=== PATIENT | male | born 1955 | race Caucasian/White ===

== ENCOUNTER 2019-07-09 11:46 | Outpatient (CLI) | payer OTHER ==
[~2019-07-09 11:46] MED LIST: ACET650S21 PO; ASCO10004 PO; ASPI-650 PO; EZET10TA70 PO; HYDR200T72 PO; METH2.5T PO; MULT-516 PO; OMEP20TA62 PO; RIVA20TA PO; ROSU40TA PO; SPIR25TA5 PO
== END 2019-07-09 23:59 | disposition home or self-care (01) ==
LOC: CARD 11:46
PROVIDERS: ATTEND Thoracic Surgery (Cardiothoracic Vascular Surgery)
DX: C34.10 Malignant neoplasm of upper lobe, unspecified bronchus or lung (principal); J43.9 Emphysema, unspecified
CPT/HCPCS: 94060; 94726; 94729

== ENCOUNTER 2019-07-10 09:40 | Inpatient (IN) | payer OTHER ==
[~2019-07-10] VITALS: Ht 177.8 cm; Wt 96.0 kg
[~2019-07-10 09:40] MED LIST changes: +BUPIVACAINE/PF-EPI 0.5% 1:200K ONE
[2019-07-10 10:32] VITALS: BP 143/80
[2019-07-10] MEDS ORDERED: LACTATED RINGERS 1,000 ML IV SCH (10:35)
[2019-07-10] MEDS ORDERED: MIDAZOLAM 1 MG/ML, 2ML ONE (10:57)
[2019-07-10] MEDS ORDERED: PROPOFOL 10 MG/ML, 20ML ONE (10:58)
[2019-07-10] MEDS ORDERED: SUCCINYLCHOLINE 20 MG/ML, 10ML ONE (10:58)
[2019-07-10] MEDS ORDERED: FENTANYL PF 250 MCG/5ML ONE (10:58)
[2019-07-10] MEDS ORDERED: NEOSTIGMINE 1 MG/ML, 10ML ONE (10:58)
[2019-07-10] MEDS ORDERED: ROCURONIUM 10MG/ML,5ML ONE (10:58)
[2019-07-10] MEDS ORDERED: GLYCOPYRROLATE 0.2MG/1ML, 5ML ONE (10:58)
[2019-07-10] MEDS ORDERED: CEFAZOLIN 1,000 MG ONE (10:58)
[2019-07-10] MEDS ORDERED: DEXAMETHASONE 4 MG/ML, 1ML ONE (10:58)
[2019-07-10] MEDS ORDERED: ONDANSETRON 2MG/ML, 2ML ONE (10:58)
[2019-07-10] MEDS ORDERED: ONDANSETRON 2MG/ML, 2ML IV PRN (11:00)
[2019-07-10] MEDS ORDERED: ACETAMINOPHEN 500 MG TABLET PO ONE (11:00)
[2019-07-10] MEDS ORDERED: MEPERIDINE/PF 25MG/ML,1ML IVPush PRN (11:00)
[2019-07-10] MEDS ORDERED: GABAPENTIN 300 MG CAPSULE PO ONE (11:00)
[2019-07-10] MEDS ORDERED: OXYcodone 5 MG/5 ML ORAL.SOL UDC PO PRN (11:00)
[2019-07-10] MEDS ORDERED: FENTANYL PF 100 MCG/2ML IV PRN (11:00)
[2019-07-10] MEDS ORDERED: EPHEDRINE 50 MG/ML, 1ML IVPush PRN (11:00)
[2019-07-10] MEDS ORDERED: LABETALOL 5MG/ML, 20ML IV PRN (11:00)
[2019-07-10] MEDS ORDERED: HYDROmorphone 1 MG/ML, 1ML INJ IVPush PRN (11:00)
[2019-07-10] MEDS ORDERED: hydrALAzine 20 MG/ML, 1ML IV PRN (11:00)
[2019-07-10] MEDS ORDERED: PROMETHAZINE 25 MG/ML, 1ML IV PRN (11:00)
[2019-07-10] MEDS ORDERED: ALBUTEROL HFA 90 MCG/SPRAY ONE (11:05)
[2019-07-10] MEDS ORDERED: KETOROLAC 30 MG/1 ML ONE (12:20)
[2019-07-10] MEDS ORDERED: SODIUM CHLORIDE 0.9% PF 10ML ONE (12:41)
[2019-07-10] MEDS ORDERED: LIDOCAINE-MPF 2% ,5ML ONE (12:41)
[2019-07-10] MEDS ORDERED: SUGAMMADEX 200 MG/2 ML IVPush ONE (13:05)
[2019-07-10] MEDS: LACTATED RINGERS 1,000 ML IV SCH ×2 (13:24→21:55)
[2019-07-10] MEDS ORDERED: LORazepam 2 MG/ML, 1ML IVPush PRN (13:30)
[2019-07-10] MEDS ORDERED: morphine SULFATE 10 MG/ML, 1ML IVPush PRN (13:30)
[2019-07-10] MEDS ORDERED: hydrALAzine 20 MG/ML, 1ML IVPush PRN (13:30)
[2019-07-10] MEDS ORDERED: ENALAPRILAT 1.25 MG/ML, 2ML IVPush PRN (13:30)
[2019-07-10] MEDS ORDERED: FAMOTIDINE 20 MG TABLET PO PRN (13:30)
[2019-07-10] MEDS ORDERED: LORazepam 1MG TABLET PO PRN (13:30)
[2019-07-10] MEDS ORDERED: ONDANSETRON 2MG/ML, 2ML IVPush PRN (13:30)
[2019-07-10] MEDS ORDERED: ACETAMINOPHEN 325 MG TABLET PO PRN (13:30)
[2019-07-10] MEDS ORDERED: FENTANYL PF 100 MCG/2ML ONE (14:33)
[2019-07-10] MEDS ORDERED: OXYcodone 5 MG/5 ML ORAL.SOL UDC ONE (14:33)
[2019-07-10] MEDS: FAMOTIDINE 20 MG/2 ML IVPush SCH (17:11)
[2019-07-10] MEDS: ATORVASTATIN 80 MG TABLET PO SCH (20:41)
[2019-07-10 21:15] VITALS: BP 121/73
[2019-07-10] MEDS: HYDROcodone/APAP 5/325 TABLET PO PRN (21:52)
[2019-07-11] MEDS: HYDROcodone/APAP 5/325 TABLET PO PRN ×4 (01:35→18:07)
[2019-07-11] MEDS: FAMOTIDINE 20 MG/2 ML IVPush SCH ×2 (01:35→08:48)
[2019-07-11 01:40] VITALS: BP 121/66
[2019-07-11 04:51] LABS: BASOPHILS # (AUTO) 0.01 x10^3/uL (0-0.1); BASOPHILS % (AUTO) 0 % (0-1); EOSINOPHILS % (AUTO) 0 % (1-7); LYMPHOCYTES % (AUTO) 8 % (22-44); MD NO; MEAN CORPUSCULAR VOLUME 100.1 fL (81-97); MEAN PLATELET VOLUME 7.2 fL (7.4-10.4); MONOCYTES # (AUTO) 0.52 x10^3/uL (0.2-0.8); MONOCYTES % (AUTO) 6 % (2-9); NEUTROPHILS # (AUTO) 8.23 x10^3/uL (1.8-6.8); NEUTROPHILS % (AUTO) 86 % (42-75); PLATELET COUNT 301 x10^3/uL (130-400); RED CELL DISTRIBUTION WIDTH 13.9 % (9.4-14.8)
[2019-07-11 04:54] LABS: ANION GAP 7 mmol/L (5-15); CALCIUM 8.1 mg/dL (8.5-10.1); CHLORIDE 107 mmol/L (98-107); CREATININE 0.99 mg/dL (0.7-1.3)
[2019-07-11 07:16] VITALS: BP 110/68
[2019-07-11] MEDS: ENOXAPARIN 30 MG/0.3 ML SQ SCH ×2 (08:47→21:14)
[2019-07-11] MEDS: EZETIMIBE 10 MG TABLET PO SCH (08:47)
[2019-07-11] MEDS ORDERED: HYDR-3237 PO (10:33)
[2019-07-11 12:51] VITALS: BP 118/66
[2019-07-11 18:55] VITALS: BP 125/63
[2019-07-11] MEDS: ATORVASTATIN 80 MG TABLET PO SCH (21:14)
[2019-07-12 01:09] VITALS: BP 146/80
[2019-07-12] MEDS: HYDROcodone/APAP 5/325 TABLET PO PRN ×3 (03:40→14:01)
[2019-07-12 06:59] VITALS: BP 128/74
[2019-07-12] MEDS: EZETIMIBE 10 MG TABLET PO SCH (09:19)
[2019-07-12] MEDS: ENOXAPARIN 30 MG/0.3 ML SQ SCH (09:19)
[2019-07-12 13:43] VITALS: BP 117/66
== END 2019-07-12 17:15 | disposition home or self-care (01) | DRG 165 ==
LOC: ORIP 09:40 → 3WST 15:45 → 4NE 18:50
PROVIDERS: ADMIT Thoracic Surgery (Cardiothoracic Vascular Surgery); ATTEND Thoracic Surgery (Cardiothoracic Vascular Surgery)
PROC: 02NN0ZZ Release Pericardium, Open Approach (ICD-10-PCS; 2019-07-10)
PROC: 0BTG4ZZ Resection of Left Upper Lung Lobe, Percutaneous Endoscopic Approach (ICD-10-PCS; principal; 2019-07-10 12:30)
DX: C34.12 Malignant neoplasm of upper lobe, left bronchus or lung (principal); D71 Functional disorders of polymorphonuclear neutrophils; Z86.711 Personal history of pulmonary embolism
CPT/HCPCS: 36415; J3490; 71045; 80048; 85025; 86850; 86900; 86923; 88305; 88309; 88312; C1729; G0378; J0690; J1100; J1650; J1885; J2250; J2405; J2704; J2710; J3010; J0330; J2270; J7120

== ENCOUNTER 2019-12-11 06:35 | Observation (INO) | payer OTHER ==
[~2019-12-11] VITALS: Ht 179.1 cm; Wt 100.0 kg
[~2019-12-11 06:35] MED LIST changes: -BUPIVACAINE/PF-EPI 0.5% 1:200K ONE; +EPINEPHRINE 1 MG/ML, 1ML ONE; +HYDR-3237 PO; +KETOROLAC 60 MG/2 ML ONE; +ROPIvacaine/PF 0.5%, 20 ML ONE; +ROPIvacaine/PF 0.5%, 30 ML ONE; +SODIUM CHLORIDE 0.9% 50 ML ONE; +TRANEXAMIC ACID 100 MG/ML, 10ML ONE; +VANCOMYCIN 1,000 MG ONE
[2019-12-11] MEDS ORDERED: HYDR200T72 PO (07:27)
[2019-12-11] MEDS ORDERED: METH2.5T PO (07:27)
[2019-12-11] MEDS ORDERED: OMEP-110 PO (07:29)
[2019-12-11] MEDS ORDERED: NABU750T PO (07:29)
[2019-12-11] MEDS ORDERED: PROMETHAZINE 25 MG/ML, 1ML IVPush PRN (07:30)
[2019-12-11] MEDS ORDERED: OXYcodone 5 MG/5 ML ORAL.SOL UDC PO PRN (07:30)
[2019-12-11] MEDS ORDERED: EPHEDRINE 50 MG/ML, 1ML IVPush PRN (07:30)
[2019-12-11] MEDS ORDERED: HYDROmorphone 1 MG/ML, 1ML INJ IVPush PRN (07:30)
[2019-12-11] MEDS ORDERED: ACETAMINOPHEN 325 MG TABLET PO PRN (07:30)
[2019-12-11] MEDS ORDERED: MEPERIDINE/PF 25MG/0.5ML IVPush PRN (07:30)
[2019-12-11] MEDS ORDERED: LABETALOL 5MG/ML, 20ML IV PRN (07:30)
[2019-12-11] MEDS ORDERED: hydrALAzine 20 MG/ML, 1ML IV PRN (07:30)
[2019-12-11] MEDS ORDERED: FENTANYL PF 100 MCG/2ML IV PRN (07:30)
[2019-12-11] MEDS ORDERED: ONDANSETRON 2MG/ML, 2ML IVPush PRN (07:30)
[2019-12-11] MEDS ORDERED: LACTATED RINGERS 1,000 ML IV SCH (07:34)
[2019-12-11 07:38] VITALS: BP 138/79
[2019-12-11] MEDS ORDERED: CHLORHEXIDINE 15 ML UDC ONE (07:44)
[2019-12-11] MEDS ORDERED: ACETAMINOPHEN 500 MG TABLET ONE (07:45)
[2019-12-11] MEDS ORDERED: GABAPENTIN 300 MG CAPSULE ONE (07:45)
[2019-12-11] MEDS ORDERED: FENTANYL PF 250 MCG/5ML ONE (07:47)
[2019-12-11] MEDS ORDERED: SODIUM CHLORIDE 0.9% PF 10ML ONE (07:47)
[2019-12-11] MEDS ORDERED: MIDAZOLAM 1 MG/ML, 2ML ONE (07:47)
[2019-12-11] MEDS ORDERED: LIDOCAINE-MPF 2% ,5ML ONE (07:47)
[2019-12-11] MEDS ORDERED: BUPIVACAINE/PF 0.5% ONE (07:47)
[2019-12-11] MEDS ORDERED: CHLORHEXIDINE 15 ML UDC MM ONE (08:00)
[2019-12-11] MEDS ORDERED: GABAPENTIN 300 MG CAPSULE PO ONE (08:00)
[2019-12-11] MEDS ORDERED: ACETAMINOPHEN 500 MG TABLET PO ONE (08:00)
[2019-12-11] MEDS ORDERED: DEXAMETHASONE 4 MG/ML, 1ML ONE (08:33)
[2019-12-11] MEDS ORDERED: CEFAZOLIN 1,000 MG ONE (08:33)
[2019-12-11] MEDS ORDERED: ONDANSETRON 2MG/ML, 2ML ONE (08:33)
[2019-12-11] MEDS ORDERED: PROPOFOL 10 MG/ML, 20ML ONE (08:33)
[2019-12-11] MEDS ORDERED: FENTANYL PF 100 MCG/2ML ONE (09:54)
[2019-12-11] MEDS ORDERED: ACETAMINOPHEN 650 MG/20.3 ML UDC ONE (10:08)
[2019-12-11 10:50] VITALS: BP 122/76
[2019-12-11 12:24] VITALS: BP 115/68
[2019-12-11] MEDS ORDERED: MORPHINE SULFATE 4 MG/ML, 1ML IVPush PRN (12:30)
[2019-12-11] MEDS ORDERED: DIAZEPAM 5 MG TABLET PO PRN (12:30)
[2019-12-11] MEDS ORDERED: DIPHENHYDRAMINE 25 MG CAPSULE PO PRN (12:30)
[2019-12-11] MEDS ORDERED: PSYLLIUM PACKET PO PRN (12:30)
[2019-12-11] MEDS ORDERED: OXYcodone/APAP 5/325MG TABLET PO PRN (12:30)
[2019-12-11] MEDS ORDERED: ONDANSETRON 2MG/ML, 2ML IV PRN (12:30)
[2019-12-11] MEDS ORDERED: OXYcodone/APAP 10/325MG TABLET PO PRN (12:30)
[2019-12-11] MEDS: SPIRONOLACTONE 25 MG TABLET PO SCH (12:45)
[2019-12-11] MEDS: OMEPRAZOLE 20 MG CAPSULE.DR PO SCH (12:45)
[2019-12-11] MEDS: EZETIMIBE 10 MG TABLET PO SCH (12:45)
[2019-12-11] MEDS: (Rosuvastatin Calcium** (Crestor**) 40 MG) PO SCH (12:46)
[2019-12-11] MEDS: HYDROXYCHLOROQUINE 200 MG TABLET PO SCH ×2 (12:46→21:11)
[2019-12-11] MEDS: ACETAMINOPHEN 500 MG TABLET PO SCH ×3 (12:46→23:48)
[2019-12-11] MEDS ORDERED: TRANEXAMIC ACID 1,000 MG in SODIUM CHLORIDE 0.9% 100 ML IVPB ONE (13:00)
[2019-12-11] MEDS: CEFAZOLIN PMX 1GM/50ML 50 ML IVPB SCH ×2 (15:51→23:48)
[2019-12-11 21:00] VITALS: BP 109/60
[2019-12-11] MEDS: DOCUSATE 100 MG CAPSULE PO SCH (21:11)
[2019-12-12 00:20] VITALS: BP 108/57
[2019-12-12 04:09] VITALS: BP 115/61
[2019-12-12] MEDS: ACETAMINOPHEN 500 MG TABLET PO SCH (05:30)
[2019-12-12] MEDS ORDERED: DEXAMETHASONE 4 MG/ML, 1ML IVPush ONE (06:00)
[2019-12-12] MEDS ORDERED: ASPIRIN 81 MG TABLET EC PO SCH ×2 (06:00→18:00)
[2019-12-12 06:45] VITALS: BP 121/63
[2019-12-12] MEDS: (Rosuvastatin Calcium** (Crestor**) 40 MG) PO SCH (09:00)
[2019-12-12] MEDS: SPIRONOLACTONE 25 MG TABLET PO SCH (09:55)
[2019-12-12] MEDS: OMEPRAZOLE 20 MG CAPSULE.DR PO SCH (09:56)
[2019-12-12] MEDS: HYDROXYCHLOROQUINE 200 MG TABLET PO SCH (09:56)
[2019-12-12] MEDS: DOCUSATE 100 MG CAPSULE PO SCH (09:56)
[2019-12-12] MEDS: EZETIMIBE 10 MG TABLET PO SCH (09:56)
[2019-12-12 10:10] VITALS: BP 124/64
[2019-12-12] MEDS ORDERED: OXYC5CAP2 PO (10:13)
[2019-12-12] MEDS ORDERED: MELO7.5T31 PO (10:14)
[2019-12-12] MEDS ORDERED: TRAM50TA2 PO (10:14)
[2019-12-14] MEDS ORDERED: METHOTREXATE 2.5 MG TABLET PO SCH (09:00)
== END 2019-12-12 10:34 | disposition home or self-care (01) ==
LOC: OUT 06:35 → 4NE 10:42 → OUT 23:31 → DCLOUNGE 12-12 10:27
PROVIDERS: ADMIT Orthopaedic Surgery; ATTEND Orthopaedic Surgery
DX: Z03.818 Encounter for observation for suspected exposure to other biological agents ruled out (principal); M06.862 Other specified rheumatoid arthritis, left knee; M24.562 Contracture, left knee; E78.5 Hyperlipidemia, unspecified; I25.10 Atherosclerotic heart disease of native coronary artery without angina pectoris; Z79.899 Other long term (current) drug therapy; Z79.82 Long term (current) use of aspirin; Z86.718 Personal history of other venous thrombosis and embolism; Z85.118 Personal history of other malignant neoplasm of bronchus and lung; Z87.891 Personal history of nicotine dependence; Z86.711 Personal history of pulmonary embolism
CPT/HCPCS: 27447; 36415; 83036; 87635; 93005; 96365; 96366; 96367; 96375; 97110; 97161; C1713; C1776; G0378; J0171; J0690; J1100; J1885; J2250; J2405; J2704; J2795; J3010; J3370; J3490; J7120; S0020

== ENCOUNTER → 2020-05-29 | Outpatient (CLI) | payer BC ==
[~2020-05-29] MED LIST changes: +ASCO100018 PO; -ASCO10004 PO; -EPINEPHRINE 1 MG/ML, 1ML ONE; -KETOROLAC 60 MG/2 ML ONE; +LIDOCAINE 1%, 10ML ONE; +MELO7.5T31 PO; +NABU750T7 PO; +OMEP-110 PO; +OXYC5CAP2 PO; -ROPIvacaine/PF 0.5%, 20 ML ONE; -ROPIvacaine/PF 0.5%, 30 ML ONE; -SODIUM CHLORIDE 0.9% 50 ML ONE; +TRAM50TA2 PO; -TRANEXAMIC ACID 100 MG/ML, 10ML ONE; -VANCOMYCIN 1,000 MG ONE
== END | disposition home or self-care (01) ==
LOC: RAD 14:29
PROVIDERS: ATTEND Internal Medicine Hematology & Oncology
DX: J90 Pleural effusion, not elsewhere classified (principal); C34.12 Malignant neoplasm of upper lobe, left bronchus or lung; Z79.82 Long term (current) use of aspirin; Z79.899 Other long term (current) drug therapy; Z72.89 Other problems related to lifestyle; Z87.891 Personal history of nicotine dependence; Z82.49 Family history of ischemic heart disease and other diseases of the circulatory system
CPT/HCPCS: 32555; 71045; 82150; 82945; 83615; 83986; 84157; 87015; 87070; 87075; 87102; 87116; 87205; 87206; 89051; J3490; 88112; 88305

== ENCOUNTER 2020-06-17 11:47 | Inpatient (IN) | payer BC ==
[~2020-06-17] VITALS: Ht 180.3 cm; Wt 75.0 kg
[~2020-06-17 11:47] MED LIST changes: +ACET325T14 PO; +ALBU18HF INH; +ASPI-1026 PO; -ASPI-650 PO; +ASPI81TA45 PO; +FLUT1BLS8 INH; -LIDOCAINE 1%, 10ML ONE
[2020-06-17] MEDS ORDERED: CHLORHEXIDINE 15 ML UDC MM ONE (12:30)
[2020-06-17 12:32] LABS: BASOPHILS % (AUTO) 1 % (0-1); EOSINOPHILS % (AUTO) 7 % (1-7); LYMPHOCYTES % (AUTO) 23 % (22-44); MEAN CORPUSCULAR HEMOGLOBIN 30.6 pg (27.5-34.5); MEAN CORPUSCULAR HGB CONC 32.8 g/dL (33.2-36.2); MONOCYTES % (AUTO) 6 % (2-9); NEUTROPHILS % (AUTO) 64 % (42-75); PLATELET COUNT 370 x10^3/uL (130-400); RED BLOOD COUNT 4.03 x10^6/uL (4.38-5.82); RED CELL DISTRIBUTION WIDTH 15.4 % (9.4-14.8)
[2020-06-17 12:33] LABS: MD NO
[2020-06-17 12:40] LABS: ALANINE AMINOTRANSFERASE 24 U/L (12-78); ALBUMIN 3.7 g/dL (3.4-5.0); ANION GAP 8 mmol/L (5-15); CALCIUM 9.3 mg/dL (8.5-10.1); CHLORIDE 103 mmol/L (98-107)
[2020-06-17 12:42] LABS: ALKALINE PHOSPHATASE 86 U/L (45-117); BILIRUBIN,TOTAL 0.5 mg/dL (0.2-1.0); CREATININE 0.67 mg/dL (0.7-1.3); TOTAL PROTEIN 8.5 g/dL (6.4-8.2)
[2020-06-17] MEDS ORDERED: LACTATED RINGERS 1,000 ML IV SCH (13:00)
[2020-06-17] MEDS ORDERED: TALC 4 GM VIAL ONE (13:51)
[2020-06-17] MEDS ORDERED: BUPIVACAINE/PF 0.5% ONE (13:51)
[2020-06-17] MEDS ORDERED: EPINEPHRINE 1 MG/ML, 1ML ONE (13:52)
[2020-06-17] MEDS ORDERED: FENTANYL PF 100 MCG/2ML ONE ×3 (13:55→16:32)
[2020-06-17] MEDS ORDERED: MIDAZOLAM 1 MG/ML, 2ML ONE (13:55)
[2020-06-17] MEDS ORDERED: PHENYLEPHRINE 10 MG/ML ONE (14:15)
[2020-06-17] MEDS ORDERED: DEXAMETHASONE 4 MG/ML, 1ML ONE (14:15)
[2020-06-17] MEDS ORDERED: KETOROLAC 30 MG/1 ML IVPush PRN (15:00)
[2020-06-17] MEDS ORDERED: ONDANSETRON 2MG/ML, 2ML IVPush PRN (15:00)
[2020-06-17] MEDS ORDERED: HYDROcodone/APAP 7.5-325MG/15ML UDC PO PRN (15:00)
[2020-06-17] MEDS ORDERED: FENTANYL PF 100 MCG/2ML IV PRN (15:00)
[2020-06-17] MEDS ORDERED: MEPERIDINE/PF 25MG/0.5ML IVPush PRN (15:00)
[2020-06-17] MEDS ORDERED: OXYcodone 5 MG/5 ML ORAL.SOL UDC PO PRN (15:00)
[2020-06-17] MEDS ORDERED: PROMETHAZINE 25 MG/ML, 1ML IVPush PRN (15:00)
[2020-06-17] MEDS ORDERED: HYDROmorphone 1 MG/ML, 1ML INJ IVPush PRN (15:00)
[2020-06-17] MEDS ORDERED: PROPOFOL 10 MG/ML, 20ML ONE (15:38)
[2020-06-17] MEDS ORDERED: NEOSTIGMINE 1 MG/ML, 10ML ONE (15:38)
[2020-06-17] MEDS ORDERED: SUCCINYLCHOLINE 20 MG/ML, 10ML ONE (15:38)
[2020-06-17] MEDS ORDERED: GLYCOPYRROLATE 0.2MG/1ML, 5ML ONE (15:38)
[2020-06-17] MEDS ORDERED: ONDANSETRON 2MG/ML, 2ML ONE (15:38)
[2020-06-17] MEDS ORDERED: CEFAZOLIN 1,000 MG ONE (15:38)
[2020-06-17] MEDS ORDERED: ROCURONIUM 10MG/ML,5ML ONE (15:38)
[2020-06-17] MEDS ORDERED: LORazepam 1MG TABLET PO PRN (16:00)
[2020-06-17] MEDS ORDERED: DIPHENHYDRAMINE 50 MG/ML, 1ML IVPush PRN (16:00)
[2020-06-17] MEDS ORDERED: ENOXAPARIN 40 MG/0.4 ML SQ SCH (16:00)
[2020-06-17] MEDS ORDERED: ACETAMINOPHEN 325 MG TABLET PO PRN (16:00)
[2020-06-17] MEDS ORDERED: hydrALAzine 20 MG/ML, 1ML IVPush PRN (16:00)
[2020-06-17] MEDS ORDERED: DIPHENHYDRAMINE 25 MG CAPSULE PO PRN (16:00)
[2020-06-17] MEDS ORDERED: FAMOTIDINE 20 MG TABLET PO SCH (16:00)
[2020-06-17] MEDS ORDERED: LORazepam 2 MG/ML, 1ML IVPush PRN (16:00)
[2020-06-17] MEDS ORDERED: ACETAMINOPHEN 650 MG/20.3 ML UDC ONE (16:32)
[2020-06-17] MEDS ORDERED: OXYcodone 5 MG/5 ML ORAL.SOL UDC ONE (16:32)
[2020-06-17] MEDS: LACTATED RINGERS 1,000 ML IV SCH (17:32)
[2020-06-17] MEDS: FAMOTIDINE 20 MG/2 ML IVPush SCH (17:32)
[2020-06-17 19:47] VITALS: BP 136/77
[2020-06-17] MEDS: HYDROcodone/APAP 5/325 TABLET PO PRN (21:41)
[2020-06-17 23:40] VITALS: BP 145/80
[2020-06-18] MEDS: HYDROcodone/APAP 5/325 TABLET PO PRN ×6 (01:54→20:03)
[2020-06-18] MEDS: LACTATED RINGERS 1,000 ML IV SCH (02:00)
[2020-06-18 03:31] VITALS: BP 149/78
[2020-06-18 04:33] LABS: BASOPHILS % (AUTO) 0 % (0-1); EOSINOPHILS % (AUTO) 0 % (1-7); LYMPHOCYTES % (AUTO) 13 % (22-44); MEAN CORPUSCULAR HEMOGLOBIN 30.5 pg (27.5-34.5); MEAN CORPUSCULAR HGB CONC 32.9 g/dL (33.2-36.2); MEAN PLATELET VOLUME 7.2 fL (7.4-10.4); MONOCYTES % (AUTO) 6 % (2-9); NEUTROPHILS % (AUTO) 81 % (42-75); PLATELET COUNT 337 x10^3/uL (130-400); RED BLOOD COUNT 3.69 x10^6/uL (4.38-5.82); RED CELL DISTRIBUTION WIDTH 15.9 % (9.4-14.8)
[2020-06-18 04:37] LABS: MD NO
[2020-06-18 04:47] LABS: ANION GAP 8 mmol/L (5-15); CHLORIDE 101 mmol/L (98-107); CREATININE 0.61 mg/dL (0.7-1.3)
[2020-06-18] MEDS: FAMOTIDINE 20 MG/2 ML IVPush SCH (06:04)
[2020-06-18 07:30] VITALS: BP 130/72
[2020-06-18 13:15] VITALS: BP 117/72
[2020-06-18] MEDS: morphine SULFATE 10 MG/ML, 1ML IVPush PRN ×2 (13:48→21:13)
[2020-06-18 18:59] VITALS: BP 118/78
[2020-06-18] MEDS: FAMOTIDINE 20 MG TABLET PO SCH (20:03)
[2020-06-19 01:13] VITALS: BP 129/74
[2020-06-19] MEDS: HYDROcodone/APAP 5/325 TABLET PO PRN ×6 (04:12→20:33)
[2020-06-19 07:48] VITALS: BP 101/68
[2020-06-19] MEDS: FAMOTIDINE 20 MG TABLET PO SCH ×2 (07:55→20:32)
[2020-06-19 13:05] VITALS: BP 125/70
[2020-06-19 19:49] VITALS: BP 122/75
[2020-06-20] MEDS: HYDROcodone/APAP 5/325 TABLET PO PRN ×5 (00:45→21:59)
[2020-06-20 01:00] VITALS: BP 136/78
[2020-06-20] MEDS ORDERED: BISACODYL 10 MG SUPP PR PRN (07:30)
[2020-06-20] MEDS: LACTULOSE 20 GM/30 ML UDC PO PRN (08:34)
[2020-06-20] MEDS: DOCUSATE 100 MG CAPSULE PO SCH (08:35)
[2020-06-20] MEDS: FAMOTIDINE 20 MG TABLET PO SCH ×2 (08:35→20:56)
[2020-06-20] MEDS ORDERED: DOCUSATE 50 MG/5 ML, 10ML UDC NG SCH (09:00)
[2020-06-20 11:45] VITALS: BP 112/72
[2020-06-20 12:40] VITALS: BP 125/79
[2020-06-20] MEDS ORDERED: ONDANSETRON 2MG/ML, 2ML IVPush PRN (16:00)
[2020-06-20] MEDS ORDERED: PROMETHAZINE 25 MG/ML, 1ML IM PRN (16:30)
[2020-06-20 20:15] VITALS: BP 112/74
[2020-06-20] MEDS: SENNA/DOCUSATE TABLET PO SCH (20:56)
[2020-06-21] MEDS: HYDROcodone/APAP 5/325 TABLET PO PRN ×4 (02:33→21:53)
[2020-06-21 02:34] VITALS: BP 144/76
[2020-06-21 07:09] VITALS: BP 116/71
[2020-06-21] MEDS: FAMOTIDINE 20 MG TABLET PO SCH ×2 (08:53→20:20)
[2020-06-21] MEDS: DOCUSATE 100 MG CAPSULE PO SCH (08:53)
[2020-06-21 13:39] VITALS: BP 106/64
[2020-06-21 18:42] VITALS: BP 112/71
[2020-06-21] MEDS: SENNA/DOCUSATE TABLET PO SCH (20:19)
[2020-06-22 01:16] VITALS: BP 129/74
[2020-06-22] MEDS: HYDROcodone/APAP 5/325 TABLET PO PRN ×4 (04:30→20:26)
[2020-06-22 08:40] VITALS: BP 110/67
[2020-06-22] MEDS: FAMOTIDINE 20 MG TABLET PO SCH ×2 (08:58→20:26)
[2020-06-22] MEDS: DOCUSATE 100 MG CAPSULE PO SCH (08:58)
[2020-06-22 15:00] VITALS: BP 110/70
[2020-06-22 20:24] VITALS: BP 119/73
[2020-06-23 01:41] VITALS: BP 128/74
[2020-06-23] MEDS: HYDROcodone/APAP 5/325 TABLET PO PRN ×4 (02:15→19:07)
[2020-06-23 06:50] VITALS: BP 119/76
[2020-06-23] MEDS: DOCUSATE 100 MG CAPSULE PO SCH (07:48)
[2020-06-23] MEDS: FAMOTIDINE 20 MG TABLET PO SCH ×2 (07:48→22:38)
[2020-06-23] MEDS: SPIRONOLACTONE 25 MG TABLET PO SCH (07:48)
[2020-06-23] MEDS: EZETIMIBE 10 MG TABLET PO SCH (07:48)
[2020-06-23 13:58] VITALS: BP 124/75
[2020-06-23 20:34] VITALS: BP 126/76
[2020-06-23] MEDS: LACTULOSE 20 GM/30 ML UDC PO PRN (22:40)
[2020-06-24] MEDS: HYDROcodone/APAP 5/325 TABLET PO PRN ×4 (00:07→15:59)
[2020-06-24 03:06] VITALS: BP 145/75
[2020-06-24 07:20] VITALS: BP 146/83
[2020-06-24] MEDS: FAMOTIDINE 20 MG TABLET PO SCH (07:47)
[2020-06-24] MEDS: EZETIMIBE 10 MG TABLET PO SCH (07:47)
[2020-06-24] MEDS: DOCUSATE 100 MG CAPSULE PO SCH (07:47)
[2020-06-24] MEDS: SPIRONOLACTONE 25 MG TABLET PO SCH (07:48)
[2020-06-24 14:10] VITALS: BP 156/90
[2020-06-24] MEDS ORDERED: HYDR-1067 PO (16:15)
== END 2020-06-24 16:30 | disposition home or self-care (01) | DRG 165 ==
LOC: OUT 11:47 → EDSTATUS 14:00 → ORIP 15:58 → 4NE 17:18 → DCLOUNGE 06-24 16:12
PROVIDERS: ADMIT Thoracic Surgery (Cardiothoracic Vascular Surgery); ATTEND Thoracic Surgery (Cardiothoracic Vascular Surgery)
PROC: 0BNL4ZZ Release Left Lung, Percutaneous Endoscopic Approach (ICD-10-PCS; 2020-06-17)
PROC: 0W9B40Z Drainage of Left Pleural Cavity with Drainage Device, Percutaneous Endoscopic Approach (ICD-10-PCS; 2020-06-17)
PROC: 0BD Respiratory System, Extraction (ICD-10-PCS; principal; 2020-06-17 14:00)
DX: J90 Pleural effusion, not elsewhere classified (principal); J98.4 Other disorders of lung; Z20.822 Contact with and (suspected) exposure to COVID-19
CPT/HCPCS: 36415; S0020; 71045; 80048; 80053; 85025; 86850; 86900; 87635; 88305; 93005; C1729; G0378; J0171; J0690; J1100; J1650; J2250; J2405; J2704; J2710; J3010; J0330; J2270; J2370; J7120